=== PATIENT | female | born 1985 | race Caucasian/White ===

== ENCOUNTER 2018-12-24 17:25 | Emergency (ER) | payer BC ==
[~2018-12-24] VITALS: Ht 157.5 cm; Wt 62.1 kg
[2018-12-24 17:43] VITALS: Ht 157.5 cm; Wt 62.1 kg
[2018-12-24 20:14] VITALS: BP 148/83
== END 2018-12-24 20:14 | disposition home or self-care (01) ==
LOC: ED 17:25
DX: L97.529 Non-pressure chronic ulcer of other part of left foot with unspecified severity (principal)
CPT/HCPCS: 90715